=== PATIENT | male | born 2005 | race Hispanic/Latino ===

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

== ENCOUNTER 2024-04-27 18:32 | Emergency (ER) | payer OTHER, SELFPAY | END 2024-04-27 22:10 | disposition home or self-care (01) | LOC: ERS 18:32 | DX: J30.2 Other seasonal allergic rhinitis (principal); R07.89 Other chest pain; R05.3 Chronic cough | CPT/HCPCS: 71045; 87428; 93005 ==